=== PATIENT | female | born 1975 | race Caucasian/White ===

== ENCOUNTER 2020-02-28 16:02 | Emergency (ER) | payer OTHER, SELFPAY ==
[2020-02-28 16:23] VITALS: BP 129/79; PULSE 92; RESP 12; TEMP 36.8; O2SAT 98; BMI 16.2
--- NOTE | 2020-02-28 16:28 | PC.NURSE ---
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 She has cancer in her bladder and a stent that has been placed for ureteral obstruction. Her abdominal pain is coming from her bladder, not from her abdominal abscess.
[2020-02-28 16:54] LABS: Add Manual Diff / Slide Review NO; Basophils Absolute Auto 100 /uL (0-100); Basophils Percent Auto 0.8 % (0-2); Eosinophils Absolute Auto 200 /uL (0-450); Eosinophils Percent Auto 1.8 % (2-4); Hematocrit 26.8 % (36-46); Hemoglobin 8.6 g/dL (12.0-16.0); Lymphocytes Absolute Auto 1500 /uL (1100-4500); Lymphocytes Percent Auto 13.9 % (25-40); Mean Corpuscular HGB Conc 32.1 % (30-36); Mean Corpuscular Hemoglobin 26.7 PG (26-34); Mean Corpuscular Volume 83.3 fL (80-100); Monocytes Absolute Auto 800 /uL (0-900); Monocytes Percent Auto 7.4 % (3-14); Neutrophils Absolute Auto 8500 /uL (1500-7000); Neutrophils Percent Auto 76.1 % (50-75); Platelet Count 749 X10^3/uL (150-400); Red Blood Cell Count 3.22 X10^6/uL (4.0-5.2); Red Cell Distribution Width 17.2 % (11.6-14.8); White Blood Cell Count 11.1 X10^3/uL (4.5-11.0)
--- NOTE | 2020-02-28 16:55 | PC.NURSE ---
NON- power port
[2020-02-28] MEDS: HYDROMORPHONE 0.5 MG INJ IV (16:57)
[2020-02-28] MEDS: SODIUM CHLORIDE 0.9% 500 ML 21 ML IV (16:59)
[2020-02-28 17:08] LABS: Alanine Aminotransferase 7 IU/L (<35); Albumin 3.3 g/dL (3.5-5.0); Albumin Globulin Ratio 0.9 (1.0-2.8); Alkaline Phosphatase 112 U/L (38-126); Aspartate Aminotransferase 15 IU/L (14-36); BUN Creatinine Ratio 12.2 (6-22); Bilirubin Total 0.3 mg/dL (0.2-1.3); Blood Urea Nitrogen 11 mg/dL (7-17); Calcium 8.7 mg/dL (8.4-10.2); Carbon Dioxide 27 mmol/L (22-32); Chloride 95 mmol/L (98-107); Estimated Glomerular Filt Rate > 60.0 mL/min (>60); Globulin 3.6 g/dL (1.7-4.1); Glucose 123 mg/dL (70-100); HEMOLYSIS < 15 (0-50); Lactate (Lactic Acid) 1.1 mmol/L (0.7-2.1); Potassium 3.7 mmol/L (3.4-5.1); Sodium 130 mmol/L (137-145); Total Protein 6.9 g/dL (6.3-8.2)
--- NOTE | 2020-02-28 17:19 | DI.CT.S_ITS ---
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 5 mm coronal and sagittal reformats were acquired. For radiation dose reduction, the following was used: automated exposure control, adjustment of mA and/or kV according to patient size. COMPARISON: [facility], CT, ABDOMEN/PELVIS WITH CONTRAST, 07/26/2017, 15:50. FINDINGS: Image quality: Excellent. ABDOMEN: Lung bases: Lung bases are clear. Heart size is normal but there is a large low-density pericardial effusion. Solid organs: The liver appears mildly enlarged and the borders scalloped by innumerable, partially peripherally calcified low-density soft tissue lesions filling the peritoneal space. Similar findings are present adjacent to the spleen. Pancreas, gallbladder and adrenal glands appear normal. The left kidney is normal. There is moderate to significant right hydronephrosis. A nephroureteral stent is present, although the proximal pigtail is in the lowest aspect of the dilated extrarenal pelvis. Peritoneum and bowel: In the absence of oral contrast, the difference between fluid-filled bowel loops and low-density intraperitoneal metastases is unable to be discerned. There is solid stool in the distal colon and rectum. There is a large pelvic mass in the right adnexa and numerous peripherally enhancing masses in the presacral region all of which appear to have low-density. An extraluminal fluid collection cannot be discerned. Nodes and vessels: No retroperitoneal or mesenteric adenopathy by size criteria. Aorta and inferior vena cava are normal in size. Miscellaneous: There is a low-density anterior abdominal wall mass in the midline measuring roughly 5.9 x 3.4 cm, larger than seen previously. PELVIS: Genitourinary: Urinary bladder morphology is difficult to discern. Nephroureteral stent appears to terminate in the right posterior bladder and there is a moderate to large amount of anti dependent gas within the urinary bladder. The wall is thickened. The source of gas is not evident. Miscellaneous: No inguinal hernias or adenopathy. Bones: No suspicious bony lesions. Mild superior endplate compression centrally of T11, and inferior endplate scalloping of L5. No vertebral body compression fractures. IMPRESSION: 1. There is been interval placement of a right nephroureteral stent which appears positioned low within the right renal pelvis and there is moderate to marked right hydronephrosis. Correlate with stent function. 2. New large low-density pericardial effusion. 3. Interval increase in size of midline low-density soft tissue mass. 4. Redemonstrated numerous intraperitoneal and presacral soft tissue masses, many of which now demonstrate peripheral calcification. The larger bilateral flank masses have decreased in size. 5. Air within the urinary bladder of uncertain etiology. This could be due to recent instrumentation, infection with gas-forming organism, or fistula. Dictated by: Blaire Parra M.D. on 02/28/2020 at 18:34 Approved by: Blaire Parra M.D. on 02/28/2020 at 18:47
[2020-02-28 17:34] LABS: Pregnancy Test Serum,Qual Negative (Negative)
--- NOTE | 2020-02-28 17:39 | ED.SKABFB ---
HPI - Skin/Abscess/Foreign Bdy <LEXIE Santos - Last Filed: 02/28/20 20:49> General Chief complaint: Skin/Abscess/Foreign Body Stated complaint: States Abcess on Belly Time Seen by Provider: 02/28/20 16:12 Source: patient and family Mode of arrival: Ambulatory Limitations: no limitations History of Present Illness HPI narrative: The patient is a 44-year-old female former smoker with history of bowel obstructions, currently being treated for urinary tract infection with Bactrim, peritoneal cancer with tumors in her abdomen as well as her bladder. She presents today with of possible abscess on her abdomen over one of her tumors. She that is the beginning of an abscess on her lower abdomen just below her umbilicus a few days ago. She denies any fevers nausea vomiting or diarrhea. She states that she is in pain from her tumors in cancer, but not from her abscess. Related Data Previous Rx's Medication Instructions Recorded hydromorphone [Dilaudid] 2 mg PO Q6HP PRN #30 tab 07/26/17 cephalexin 500 mg PO TID 7 Days #21 cap 02/28/20 Allergies Allergy/AdvReac Type Severity Reaction Status Date / Time oxycodone [OXYCODONE] Allergy Unknown Hives Verified 02/28/20 16:56 Review of Systems <[facility] - Last Filed: 02/28/20 20:49> Review of Systems Narrative: GENERAL: Denies chills, fatigue, malaise, fever, sweats. HEENT: Denies sinus pain, ear pain, sore throat, difficulty swallowing, dizziness. RESPIRATORY: Denies dyspnea, cough, wheezing, hemoptysis, sputum. CARDIOVASCULAR: Denies chest pain, palpitations, orthopnea, edema, GASTROINTESTINAL: See HPI : Denies dysuria, frequency, incontinence, hematuria, urinary retention. MUSCULOSKELETAL: denies weakness, joint pain, or bony pain SKIN: See HPI NEUROLOGIC: Denies weakness, headache, numbness, change in speech, confusion, seizures, incoordination. PSYCHIATRIC: No concerning psychosocial issues. 12 point review of systems is negative except for those stated above Patient History <LEXIE Santos - Last Filed: 02/28/20 20:49> Social History Smoking Status: Former smoker Smoking Status: Former smoker tobacco type: cigarettes Substance Use Type: does not use Exam <ANASTASIA Santos - Last Filed: 02/28/20 20:49> Narrative Exam Narrative: GENERAL: Thin female, chronically ill-appearing HEAD: Atraumatic. Normocephalic. No temporal or scalp tenderness. EYES: Pupils equal round and reactive. Extraocular motions intact. No scleral icterus. No injection or drainage. ENT: Nose without bleeding, purulent drainage or septal hematoma. Throat without erythema, tonsillar hypertrophy or exudate. Uvula midline. Airway patent. NECK: Trachea midline. No JVD or lymphadenopathy. Supple, nontender, no meningeal signs. CARDIOVASCULAR: Regular rate and rhythm RESPIRATORY: Clear to auscultation. Breath sounds equal bilaterally. No wheezes, rales, or rhonchi. No cough. No increased respiratory effort. No accessory muscle use. GASTROINTESTINAL: Abdomen firm, active bowel sounds all 4 quadrants, generally painful to palpation, multiple masses palpated. 0.5 cm blister appearing just distal to umbilicus with 2 mm slight surrounding erythema. EXTREMITIES: No clubbing, cyanosis, or edema. No joint tenderness, effusion, or edema noted. BACK: Nontender without deformity or crepitance. No flank tenderness. NEURO: AOx3. SKIN: See GI Initial Vital Signs Initial Vital Signs: Vital Signs Temperature 98.3 F 02/28/20 16:23 Pulse Rate 92 H 02/28/20 16:23 Respiratory Rate 12 02/28/20 16:23 Blood Pressure 129/79 02/28/20 16:23 Pulse Oximetry 98 02/28/20 16:23 <Chandrakant Graham DO - Last Filed: 02/28/20 20:50> Initial Vital Signs Initial Vital Signs: Vital Signs Temperature 98.3 F 02/28/20 16:23 Pulse Rate 92 H 02/28/20 16:23 Respiratory Rate 12 02/28/20 16:23 Blood Pressure 129/79 02/28/20 16:23 Pulse Oximetry 98 02/28/20 16:23 Procedures <ANASTASIA Santos - Last Filed: 02/28/20 20:49> Abscess I/D I&D #1: Site: abdomen (Umbilicus) Technique: needle aspiration (cleaned with chloa prep ) Irrigation: No Packing used?: none Course <AMANDA SantosP-BC - Last Filed: 02/28/20 20:49> Orders Ordered: ED Orders 02/28/20 16:40 Test Serum,Qual Stat 02/28/20 16:47 Complete Blood Count AUTO DIFF Stat Comprehensive Metabolic Panel Stat Lactate (Lactic Acid) Stat 02/28/20 17:19 CT abdomen pelvis w con Stat 02/28/20 17:28 Urine Culture Stat Urine Microscopic Stat Discontinued Medications Cephalexin HCl (Keflex) 500 mg PO NOW ONE Stop: 02/28/20 19:12 Last Admin: 02/28/20 19:35 Dose: 500 mg Documented by: GAL Heparin Sodium (Porcine) (Heparin Flush (Port)) 500 unit IV PRN PRN PRN Reason: Flush Last Admin: 02/28/20 19:53 Dose: 500 unit Documented by: GAL Hydromorphone HCl (Dilaudid) 0.5 mg IV NOW ONE Stop: 02/28/20 16:50 Last Admin: 02/28/20 16:57 Dose: 0.5 mg Documented by: GAL Hydromorphone HCl (Dilaudid) 1 mg IV NOW ONE Stop: 02/28/20 18:34 Last Admin: 02/28/20 18:43 Dose: 1 mg Documented by: GAL Sodium Chloride (Normal Saline 0.9%) 500 mls @ 21 mls/hr IV CONT ELGIN Last Infusion: 02/28/20 19:55 Dose: 0 mls/hr Documented by: Infusion: 02/28/20 19:42 Dose: 0 mls/hr Documented by: Admin: 02/28/20 16:59 Dose: 50 mls/hr Documented by: GAL Vital Signs Vital signs: Vital Signs - 8 hr 02/28/20 16:23 02/28/20 19:56 Temperature 98.3 F Pulse Rate 92 H 95 H Respiratory Rate 12 12 Blood Pressure 129/79 123/80 Pulse Oximetry 98 99 <Chandrakant Graham DO - Last Filed: 02/28/20 20:50> Orders Ordered: ED Orders 02/28/20 16:40 Test Serum,Qual Stat 02/28/20 16:47 Complete Blood Count AUTO DIFF Stat Comprehensive Metabolic Panel Stat Lactate (Lactic Acid) Stat 02/28/20 17:19 CT abdomen pelvis w con Stat 02/28/20 17:28 Urine Culture Stat Urine Microscopic Stat Discontinued Medications Cephalexin HCl (Keflex) 500 mg PO NOW ONE Stop: 02/28/20 19:12 Last Admin: 02/28/20 19:35 Dose: 500 mg Documented by: GAL Heparin Sodium (Porcine) (Heparin Flush (Port)) 500 unit IV PRN PRN PRN Reason: Flush Last Admin: 02/28/20 19:53 Dose: 500 unit Documented by: GAL Hydromorphone HCl (Dilaudid) 0.5 mg IV NOW ONE Stop: 02/28/20 16:50 Last Admin: 02/28/20 16:57 Dose: 0.5 mg Documented by: GAL Hydromorphone HCl (Dilaudid) 1 mg IV NOW ONE Stop: 02/28/20 18:34 Last Admin: 02/28/20 18:43 Dose: 1 mg Documented by: GAL Sodium Chloride (Normal Saline 0.9%) 500 mls @ 21 mls/hr IV CONT ELGIN Last Infusion: 02/28/20 19:55 Dose: 0 mls/hr Documented by: Infusion: 02/28/20 19:42 Dose: 0 mls/hr Documented by: Admin: 02/28/20 16:59 Dose: 50 mls/hr Documented by: GAL Vital Signs Vital signs: Vital Signs - 8 hr 02/28/20 16:23 02/28/20 19:56 Temperature 98.3 F Pulse Rate 92 H 95 H Respiratory Rate 12 12 Blood Pressure 129/79 123/80 Pulse Oximetry 98 99 MDM - Skin/Abscess/Foreign Bdy <ANASTASIA Santos - Last Filed: 02/28/20 20:49> Lab Data Result diagrams: 02/28/20 16:47 02/28/20 16:47 Labs: Lab Results 02/28/20 02/28/20 02/28/20 Range/Units 16:40 16:47 16:47 WBC 11.1 H (4.5-11.0) X10^3/uL RBC 3.22 L (4.0-5.2) X10^6/uL Hgb 8.6 L (12.0-16.0) g/dL Hct 26.8 L (36-46) % MCV 83.3 (80-100) fL MCH 26.7 (26-34) PG MCHC 32.1 (30-36) % RDW 17.2 H (11.6-14.8) % Plt Count 749 H (150-400) X10^3/uL Neut % (Auto) 76.1 H (50-75) % Lymph % (Auto) 13.9 L (25-40) % Foard % (Auto) 7.4 (3-14) % Eos % (Auto) 1.8 L (2-4) % Baso % (Auto) 0.8 (0-2) % Neut # (Auto) 8500 H (7481-6393) /uL Lymph # (Auto) 1500 (1123-0015) /uL Foard # (Auto) 800 (0-900) /uL Eos # (Auto) 200 (0-450) /uL Baso # (Auto) 100 (0-100) /uL Sodium 130 L (137-145) mmol/L Potassium 3.7 (3.4-5.1) mmol/L Chloride 95 L (98-107) mmol/L Carbon Dioxide 27 (22-32) mmol/L BUN 11 (7-17) mg/dL Creatinine 0.90 (0.52-1.04) mg/dL Estimated GFR > 60.0 (>60) mL/min BUN/Creatinine Ratio 12.2 (6-22) Glucose 123 H (70-100) mg/dL Lactate (0.7-2.1) mmol/L Calcium 8.7 (8.4-10.2) mg/dL Total Bilirubin 0.3 (0.2-1.3) mg/dL AST 15 (14-36) IU/L ALT 7 (<35) IU/L Alkaline Phosphatase 112 (38-126) U/L Total Protein 6.9 (6.3-8.2) g/dL Albumin 3.3 L (3.5-5.0) g/dL Globulin 3.6 (1.7-4.1) g/dL Albumin/Globulin Ratio 0.9 L (1.0-2.8) Serum , Qual Negative (Negative) Urine RBC (0-5/HPF) Urine WBC (0-5/HPF) Ur Squamous Epith Cells (0-5/HPF) Amorphous Sediment Urine Bacteria (None) Urine Mucus (Negative) Ur Culture Indicated? 02/28/20 02/28/20 Range/Units 16:47 17:28 WBC (4.5-11.0) X10^3/uL RBC (4.0-5.2) X10^6/uL Hgb (12.0-16.0) g/dL Hct (36-46) % MCV (80-100) fL MCH (26-34) PG MCHC (30-36) % RDW (11.6-14.8) % Plt Count (150-400) X10^3/uL Neut % (Auto) (50-75) % Lymph % (Auto) (25-40) % Foard % (Auto) (3-14) % Eos % (Auto) (2-4) % Baso % (Auto) (0-2) % Neut # (Auto) (6846-4483) /uL Lymph # (Auto) (5060-8641) /uL Foard # (Auto) (0-900) /uL Eos # (Auto) (0-450) /uL Baso # (Auto) (0-100) /uL Sodium (137-145) mmol/L Potassium (3.4-5.1) mmol/L Chloride (98-107) mmol/L Carbon Dioxide (22-32) mmol/L BUN (7-17) mg/dL Creatinine (0.52-1.04) mg/dL Estimated GFR (>60) mL/min BUN/Creatinine Ratio (6-22) Glucose (70-100) mg/dL Lactate 1.1 (0.7-2.1) mmol/L Calcium (8.4-10.2) mg/dL Total Bilirubin (0.2-1.3) mg/dL AST (14-36) IU/L ALT (<35) IU/L Alkaline Phosphatase (38-126) U/L Total Protein (6.3-8.2) g/dL Albumin (3.5-5.0) g/dL Globulin (1.7-4.1) g/dL Albumin/Globulin Ratio (1.0-2.8) Serum , Qual (Negative) Urine RBC 5-10/hpf H (0-5/HPF) Urine WBC >100/hpf H (0-5/HPF) Ur Squamous Epith Cells 0-1 /hpf (0-5/HPF) Amorphous Sediment 1+ Urine Bacteria Many (>30) H (None) Urine Mucus 2+ H (Negative) Ur Culture Indicated? Specimen cultured Point of Care Testing Test Results Negative Urine Dip Bedside Urine Glucose Negative Bedside Urine Bilirubin - Negative Bedside Urine Ketone - Negative Urine Specific [place] 1.015 Bedside Urine Occult Blood +++ Bedside Urine pH 7.5 Bedside Urine Protein + 30 Bedside Urine Urobilinogen - Negative Bedside Urine Nitrite - Negative Bedside Urine Leukocytes +++ [address] scan - abdomen/pelvis: Radiologist's Impression: [address] [place] [id number] Scan Report Signed Patient: Darby Carver#: [id number] : 1975Acct:[id number] Age/Sex: 44 / FDate of Service: 02/28/20 Loc: ED Accession Number: [id number] Procedure: CT abdomen pelvis w con 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 5 mm coronal and sagittal reformats were acquired. For radiation dose reduction, the following was used: automated exposure control, adjustment of mA and/or kV according to patient size. COMPARISON: [facility], CT, ABDOMEN/PELVIS WITH CONTRAST, 07/26/2017, 15:50. FINDINGS: Image quality: Excellent. ABDOMEN: Lung bases: Lung bases are clear. Heart size is normal but there is a large low-density pericardial effusion. Solid organs: The liver appears mildly enlarged and the borders scalloped by innumerable, partially peripherally calcified low-density soft tissue lesions filling the peritoneal space. Similar findings are present adjacent to the spleen. Pancreas, gallbladder and adrenal glands appear normal. The left kidney is normal. There is moderate to significant right hydronephrosis. A nephroureteral stent is present, although the proximal pigtail is in the lowest aspect of the dilated extrarenal pelvis. Peritoneum and bowel: In the absence of oral contrast, the difference between fluid-filled bowel loops and low-density intraperitoneal metastases is unable to be discerned. There is solid stool in the distal colon and rectum. There is a large pelvic mass in the right adnexa and numerous peripherally enhancing masses in the presacral region all of which appear to have low-density. An extraluminal fluid collection cannot be discerned. Nodes and vessels: No retroperitoneal or mesenteric adenopathy by size criteria. Aorta and inferior vena cava are normal in size. Miscellaneous: There is a low-density anterior abdominal wall mass in the midline measuring roughly 5.9 x 3.4 cm, larger than seen previously. PELVIS: Genitourinary: Urinary bladder morphology is difficult to discern. Nephroureteral stent appears to terminate in the right posterior bladder and there is a moderate to large amount of anti dependent gas within the urinary bladder. The wall is thickened. The source of gas is not evident. Miscellaneous: No inguinal hernias or adenopathy. Bones: No suspicious bony lesions. Mild superior endplate compression centrally of T11, and inferior endplate scalloping of L5. No vertebral body compression fractures. IMPRESSION: 1. There is been interval placement of a right nephroureteral stent which appears positioned low within the right renal pelvis and there is moderate to marked right hydronephrosis. Correlate with stent function. 2. New large low-density pericardial effusion. 3. Interval increase in size of midline low-density soft tissue mass. 4. Redemonstrated numerous intraperitoneal and presacral soft tissue masses, many of which now demonstrate peripheral calcification. The larger bilateral flank masses have decreased in size. 5. Air within the urinary bladder of uncertain etiology. This could be due to recent instrumentation, infection with gas-forming organism, or fistula. Dictated by: Blaire Parra M.D. on 02/28/2020 at 18:34 Approved by: Blaire Parra M.D. on 02/28/2020 at 18:47 [facility] Narrative Medical decision making narrative: The patient is a 44-year-old female with a complicated medical history including peritoneal cancer, known multiple masses who presents with a chief complaint of an abscess over one of her abdominal masses that can be seen protruding from the skin. Given her complicated history, as CT scan was obtained to ensure that there is no fistula or tumor protrusion. Her CT scan came back negative for any acute findings. Her CT scan does have multiple masses in her flanks, abdomen, which the patient states are known. It shows a pericardial effusion which the patient states is known. She also has evidence of a ureteral stent, which was recently placed correlated with hydronephrosis, which the patient states is known. Additionally her creatinine is 0.9. We also discussed evidence of air in the urinary bladder. The patient was given a copy of her CT scan and states that there are no acute findings and that she knows about everything. The patient is currently taking Bactrim for urinary tract infection, I did obtain a culture of her abscess that will result shortly. She has no signs of hemodynamically instability and appears nontoxic. I did place her on cephalexin to broaden her coverage and encouraged a probiotic or yogurt. The patient was given Dilaudid throughout her stay in the ER for pain control as she takes this as an outpatient. Wound cultures pending. Patient states that she will follow up with primary care provider in the next few days. I discussed at length the importance of follow-up with primary care as well as her Hematology-Oncology. Discussed coming back to ER for acute concerns, abdominal pain with fever inability keep down fluids etcetera. Patient has been of no questions or concerns upon discharge and states understanding return precautions as well as follow-up care. <Chandrakant Graham, DO - Last Filed: 02/28/20 20:50> Lab Data Labs: Lab Results 02/28/20 02/28/20 02/28/20 Range/Units 16:40 16:47 16:47 WBC 11.1 H (4.5-11.0) X10^3/uL RBC 3.22 L (4.0-5.2) X10^6/uL Hgb 8.6 L (12.0-16.0) g/dL Hct 26.8 L (36-46) % MCV 83.3 (80-100) fL MCH 26.7 (26-34) PG MCHC 32.1 (30-36) % RDW 17.2 H (11.6-14.8) % Plt Count 749 H (150-400) X10^3/uL Neut % (Auto) 76.1 H (50-75) % Lymph % (Auto) 13.9 L (25-40) % Foard % (Auto) 7.4 (3-14) % Eos % (Auto) 1.8 L (2-4) % Baso % (Auto) 0.8 (0-2) % Neut # (Auto) 8500 H (7590-0434) /uL Lymph # (Auto) 1500 (9068-2079) /uL Foard # (Auto) 800 (0-900) /uL Eos # (Auto) 200 (0-450) /uL Baso # (Auto) 100 (0-100) /uL Sodium 130 L (137-145) mmol/L Potassium 3.7 (3.4-5.1) mmol/L Chloride 95 L (98-107) mmol/L Carbon Dioxide 27 (22-32) mmol/L BUN 11 (7-17) mg/dL Creatinine 0.90 (0.52-1.04) mg/dL Estimated GFR > 60.0 (>60) mL/min BUN/Creatinine Ratio 12.2 (6-22) Glucose 123 H (70-100) mg/dL Lactate (0.7-2.1) mmol/L Calcium 8.7 (8.4-10.2) mg/dL Total Bilirubin 0.3 (0.2-1.3) mg/dL AST 15 (14-36) IU/L ALT 7 (<35) IU/L Alkaline Phosphatase 112 (38-126) U/L Total Protein 6.9 (6.3-8.2) g/dL Albumin 3.3 L (3.5-5.0) g/dL Globulin 3.6 (1.7-4.1) g/dL Albumin/Globulin Ratio 0.9 L (1.0-2.8) Serum , Qual Negative (Negative) Urine RBC (0-5/HPF) Urine WBC (0-5/HPF) Ur Squamous Epith Cells (0-5/HPF) Amorphous Sediment Urine Bacteria (None) Urine Mucus (Negative) Ur Culture Indicated? 02/28/20 02/28/20 Range/Units 16:47 17:28 WBC (4.5-11.0) X10^3/uL RBC (4.0-5.2) X10^6/uL Hgb (12.0-16.0) g/dL Hct (36-46) % MCV (80-100) fL MCH (26-34) PG MCHC (30-36) % RDW (11.6-14.8) % Plt Count (150-400) X10^3/uL Neut % (Auto) (50-75) % Lymph % (Auto) (25-40) % Foard % (Auto) (3-14) % Eos % (Auto) (2-4) % Baso % (Auto) (0-2) % Neut # (Auto) (7674-0671) /uL Lymph # (Auto) (2705-9148) /uL Foard # (Auto) (0-900) /uL Eos # (Auto) (0-450) /uL Baso # (Auto) (0-100) /uL Sodium (137-145) mmol/L Potassium (3.4-5.1) mmol/L Chloride (98-107) mmol/L Carbon Dioxide (22-32) mmol/L BUN (7-17) mg/dL Creatinine (0.52-1.04) mg/dL Estimated GFR (>60) mL/min BUN/Creatinine Ratio (6-22) Glucose (70-100) mg/dL Lactate 1.1 (0.7-2.1) mmol/L Calcium (8.4-10.2) mg/dL Total Bilirubin (0.2-1.3) mg/dL AST (14-36) IU/L ALT (<35) IU/L Alkaline Phosphatase (38-126) U/L Total Protein (6.3-8.2) g/dL Albumin (3.5-5.0) g/dL Globulin (1.7-4.1) g/dL Albumin/Globulin Ratio (1.0-2.8) Serum , Qual (Negative) Urine RBC 5-10/hpf H (0-5/HPF) Urine WBC >100/hpf H (0-5/HPF) Ur Squamous Epith Cells 0-1 /hpf (0-5/HPF) Amorphous Sediment 1+ Urine Bacteria Many (>30) H (None) Urine Mucus 2+ H (Negative) Ur Culture Indicated? Specimen cultured Point of Care Testing Test Results Negative Urine Dip Bedside Urine Glucose Negative Bedside Urine Bilirubin - Negative Bedside Urine Ketone - Negative Urine Specific [place] 1.015 Bedside Urine Occult Blood +++ Bedside Urine pH 7.5 Bedside Urine Protein + 30 Bedside Urine Urobilinogen - Negative Bedside Urine Nitrite - Negative Bedside Urine Leukocytes +++ 500 Esterase Discharge Plan Departure Patient Disposition: Home Clinical Impression: Abscess of skin or subcutaneous tissue Qualifiers: Site of cutaneous abscess: trunk Site of cutaneous abscess of trunk: umbilicus Qualified Code(s): L02.216 - Cutaneous abscess of umbilicus Discharge Date/Time: 02/28/20 19:58 Instructions: DI for Skin Abscess Activity Restrictions/Additional Instructions: Thank you for trusting us with your care today. I sent a prescription of an additional antibiotic to [facility]. Please continue your Bactrim. As discussed, please follow-up with primary care provider in the next few days. I encouraged a probiotic or yogurt with your antibiotics. We are doing a wound culture, results should come up in 2-3 days. We will call you if we need to change her antibiotic therapy. Please come back to the emergency department for any acute concerns. Prescriptions: New cephalexin 500 mg capsule 500 mg PO TID 7 Days Qty: 21 RF: 0 No Action hydromorphone [Dilaudid] 2 MG tablet 2 mg PO Q6HP PRNQty: 30 RF: 0 Referrals: Marta Grant MD [Primary Care Provider] - <Chandrakant Graham, - Last Filed: 02/28/20 20:50> Cosign ED Attending Cosignature Attestation: Dr Graham Co-Sign Statement: I was available for consultation during this patient's emergency department visit. This chart is signed by myself for administrative purposes only. I did not have direct contact with this patient during this visit. They were seen independently by the APC.
[2020-02-28 18:30] LABS: Amorphous Sediment Urine 1+; Bacteria Urine Many (>30); Culture Indicated Urine Specimen Cultured; Mucus Urine 2+ (Negative); RBC Urine 5-10/HPF (0-5/HPF); Squamous Epithelial Cell Urine 0-1 /HPF (0-5/HPF); WBC Urine >100/HPF (0-5/HPF)
[2020-02-28] MEDS: HYDROMORPHONE 1 MG INJ IV (18:43)
[2020-02-28] MEDS: cephALEXin 250 MG CAPSULE 500 MG PO (19:35)
[2020-02-28 19:56] VITALS: BP 123/80; PULSE 95; RESP 12; O2SAT 99
== END 2020-02-28 19:58 | disposition home or self-care (01) ==
PROVIDERS: Emergency Provider Nurse Practitioner Family; PCP Family Medicine
DX: L02.216 Cutaneous abscess of umbilicus (principal)
CPT/HCPCS: 36415; 74177; 80053; 81003; 81015; 81025; 83605; 84703; 85025; 87086; 96361; 96374; 96375; 99284; J1170; J1642; Q9967

== ENCOUNTER 2020-05-04 10:57 | Emergency (ER) | payer OTHER, SELFPAY ==
[2020-05-04] VITALS (21 sets, daily range): BP systolic 81–105; BP diastolic 54–70; PULSE 62–81; RESP 12–22; TEMP 36.3–36.7; O2SAT 92–100; BMI 16.9
[2020-05-04 11:39] LABS: Amorphous Sediment Urine 2+; Bacteria Urine Many (>30); Culture Indicated Urine Specimen Cultured; RBC Urine 5-10/HPF (0-5/HPF); Squamous Epithelial Cell Urine 1-5 /HPF (0-5/HPF); WBC Urine >100/HPF (0-5/HPF)
--- NOTE | 2020-05-04 11:52 | ED.WEAKNESS ---
HPI - Weakness General Chief complaint: Weakness Stated complaint: need dehydration fluids/weakness x7 days Time Seen by Provider: 05/04/20 11:06 Source: patient Mode of arrival: Wheelchair Limitations: no limitations History of Present Illness HPI Narrative: Patient is a 44-year-old female with complicated history peritoneal cancer, small-bowel obstructions, UTIs, fistula, currently hers cancer is being treated and monitored by specialist in [facility] not currently on chemo or radiation presenting today with increased weakness dizziness lightheadedness. She says every time she stands up she gets extremely fatigued tired and dizzy. She has previously needed blood transfusions or IV hydration. She denies any fever or chills. MD Complaint: generalized weakness Related Data Previous Rx's Medication Instructions Recorded hydromorphone [Dilaudid] 2 mg PO Q6HP PRN #30 tab 07/26/17 Allergies Allergy/AdvReac Type Severity Reaction Status Date / Time oxycodone [OXYCODONE] Allergy Unknown Hives Verified 05/04/20 11:16 Review of Systems Review of Systems ROS Unobtainable: All systems reviewed & are unremarkable except as noted in HPI and below Constitutional Constitutional: Denies chills, Denies fever(s), Reports lethargy and Reports weakness Eyes Eyes: Denies change in vision, Denies eye discharge, Denies irritation and Denies loss of vision Cardiovascular Cardiovascular: Denies chest pain, Denies irregular heart rhythm, Denies lightheadedness, Denies palpitations, Denies dyspnea, Denies dyspnea on exertion and Denies orthopnea Respiratory Respiratory: Denies cough, Denies dyspnea, Denies dyspnea on exertion and Denies wheezing Gastrointestinal Gastrointestinal: Reports as per HPI, Denies diarrhea, Denies nausea and Denies vomiting Musculoskeletal Musculoskeletal: Denies muscle cramps Integumentary/Breasts Skin/Breast: Denies pruritus, Denies erythema, Denies rash and Denies wounds Neurologic Neurologic: Denies loss of vision and Reports weakness Endocrine Endocrine: Denies palpitations Allergic/Immunologic Allergic/Immunologic: Denies wheezing Patient History Medical History Anemia Cancer of peritoneum Social History Smoking Status: Former smoker Smoking Status: Former smoker tobacco type: cigarettes Substance Use Type: does not use Exam Initial Vital Signs Initial Vital Signs: Vital Signs Temperature 98.1 F 05/04/20 11:00 Pulse Rate 81 05/04/20 11:00 Respiratory Rate 14 05/04/20 11:00 Blood Pressure 101/62 05/04/20 11:00 Pulse Oximetry 100 05/04/20 11:00 GENERAL: Chronically ill cachectic female and in no acute distress. HEENT: Head atraumatic,EOMI, pupils reactive, face symmetric, moist mucous membranes CARDIOVASCULAR: Regular rate and rhythm without murmurs, rubs or gallops. RESPIRATORY: Breath sounds equal bilaterally, no wheezes rales or rhonchi. ABDOMEN: Soft, distended nontender no guarding or rebound EXTREMITIES: Normal range of motion, no clubbing or edema. Neurovascularly intact NEUROLOGICAL: Alert and oriented x4.Normal gait and speech. SKIN: Warm, dry, no laceration, no petechiae, no rashes or lesions. Course Orders Ordered: ED Orders 05/04/20 11:18 Urine Culture Stat Urine Microscopic Stat 05/04/20 11:40 Complete Blood Count AUTO DIFF Stat Comprehensive Metabolic Panel Stat Packed Cells Stat Type and Screen Stat Discontinued Medications Hydromorphone HCl (Hydromorphone 1 Mg Inj) 1 mg IV NOW ONE Stop: 05/04/20 12:51 Last Admin: 05/04/20 13:32 Dose: 1 mg Documented by: BRITTANY Hydromorphone HCl (Hydromorphone 1 Mg Inj) 1 mg IV NOW ONE Stop: 05/04/20 16:18 Last Admin: 05/04/20 16:23 Dose: 1 mg Documented by: BRITTANY Sodium Chloride (Normal Saline 0.9%) 1,000 mls @ 1,000 mls/hr IV BOLUS ONE Stop: 05/04/20 12:59 Last Infusion: 05/04/20 14:15 Dose: 0 mls/hr Documented by: Admin: 05/04/20 12:25 Dose: 1,000 mls/hr Documented by: JESSICA Vital Signs Vital signs: Vital Signs - 8 hr 05/04/20 11:00 05/04/20 12:22 05/04/20 12:30 Temperature 98.1 F Pulse Rate 81 63 70 Respiratory Rate 14 Blood Pressure 101/62 90/54 L 90/56 L Pulse Oximetry 100 98 93 05/04/20 13:00 05/04/20 13:25 05/04/20 13:30 Temperature Pulse Rate 67 71 Respiratory Rate Blood Pressure 86/64 L 91/57 L 96/63 Pulse Oximetry 100 96 05/04/20 13:39 05/04/20 13:58 05/04/20 13:59 Temperature 97.4 F L Pulse Rate 65 71 71 Respiratory Rate 12 Blood Pressure 87/65 L 85/61 L 85/61 L Pulse Oximetry 93 98 05/04/20 14:00 05/04/20 14:18 05/04/20 14:22 Temperature 97.6 F Pulse Rate 71 64 Respiratory Rate 18 Blood Pressure 89/56 L 81/58 L 81/58 L Pulse Oximetry 92 05/04/20 15:47 05/04/20 15:56 05/04/20 15:57 Temperature 97.5 F L Pulse Rate 64 71 Respiratory Rate 22 Blood Pressure 85/57 L 85/57 L Pulse Oximetry 100 100 05/04/20 16:00 05/04/20 16:05 05/04/20 16:19 Temperature 97.5 F L Pulse Rate 73 62 63 Respiratory Rate 18 Blood Pressure 86/62 L 86/62 L 87/60 L Pulse Oximetry 100 94 05/04/20 16:21 Temperature 97.5 F L Pulse Rate 71 Respiratory Rate 16 Blood Pressure 87/60 L Pulse Oximetry MDM - Weakness Lab Data Attestation: I reviewed the patient's lab results. Result diagrams: 05/04/20 11:40 05/04/20 11:40 Labs: Lab Results 05/04/20 05/04/20 05/04/20 Range/Units 11:18 11:40 11:40 WBC 10.4 (4.5-11.0) X10^3/uL RBC 2.30 L (4.0-5.2) X10^6/uL Hgb 5.7 L* (12.0-16.0) g/dL Hct 19.1 L* (36-46) % MCV 83.1 (80-100) fL MCH 24.6 L (26-34) PG MCHC 29.6 L (30-36) % RDW 17.6 H (11.6-14.8) % Plt Count 475 H (150-400) X10^3/uL Neut % (Auto) 81.7 H (50-75) % Lymph % (Auto) 11.4 L (25-40) % [place] % (Auto) 6.3 (3-14) % Eos % (Auto) 0.1 L (2-4) % Baso % (Auto) 0.5 (0-2) % Neut # (Auto) 8500 H (9655-6686) /uL Lymph # (Auto) 1200 (7623-1735) /uL [place] # (Auto) 700 (0-900) /uL Eos # (Auto) 0 (0-450) /uL Baso # (Auto) 100 (0-100) /uL Sodium 134 L (137-145) mmol/L Potassium 3.0 L (3.4-5.1) mmol/L Chloride 102 (98-107) mmol/L Carbon Dioxide 29 (22-32) mmol/L BUN 23 H (7-17) mg/dL Creatinine 0.53 (0.52-1.04) mg/dL Estimated GFR > 60.0 (>60) mL/min BUN/Creatinine Ratio 43.4 H (6-22) Glucose 103 H (70-100) mg/dL Calcium 7.6 L (8.4-10.2) mg/dL Total Bilirubin 0.3 (0.2-1.3) mg/dL AST 21 (14-36) IU/L ALT 9 (<35) IU/L Alkaline Phosphatase 100 (38-126) U/L Total Protein 5.5 L (6.3-8.2) g/dL Albumin 2.3 L (3.5-5.0) g/dL Globulin 3.2 (1.7-4.1) g/dL Albumin/Globulin Ratio 0.7 L (1.0-2.8) Urine RBC 5-10/hpf H (0-5/HPF) Urine WBC >100/hpf H (0-5/HPF) Ur Squamous Epith Cells 1-5 /hpf (0-5/HPF) Amorphous Sediment 2+ Urine Bacteria Many (>30) H (None) Ur Culture Indicated? Specimen cultured Blood Type Antibody Screen Crossmatch 05/04/20 Range/Units 11:40 WBC (4.5-11.0) X10^3/uL RBC (4.0-5.2) X10^6/uL Hgb (12.0-16.0) g/dL Hct (36-46) % MCV (80-100) fL MCH (26-34) PG MCHC (30-36) % RDW (11.6-14.8) % Plt Count (150-400) X10^3/uL Neut % (Auto) (50-75) % Lymph % (Auto) (25-40) % [place] % (Auto) (3-14) % Eos % (Auto) (2-4) % Baso % (Auto) (0-2) % Neut # (Auto) (5676-0274) /uL Lymph # (Auto) (1511-3825) /uL [place] # (Auto) (0-900) /uL Eos # (Auto) (0-450) /uL Baso # (Auto) (0-100) /uL Sodium (137-145) mmol/L Potassium (3.4-5.1) mmol/L Chloride (98-107) mmol/L Carbon Dioxide (22-32) mmol/L BUN (7-17) mg/dL Creatinine (0.52-1.04) mg/dL Estimated GFR (>60) mL/min BUN/Creatinine Ratio (6-22) Glucose (70-100) mg/dL Calcium (8.4-10.2) mg/dL Total Bilirubin (0.2-1.3) mg/dL AST (14-36) IU/L ALT (<35) IU/L Alkaline Phosphatase (38-126) U/L Total Protein (6.3-8.2) g/dL Albumin (3.5-5.0) g/dL Globulin (1.7-4.1) g/dL Albumin/Globulin Ratio (1.0-2.8) Urine RBC (0-5/HPF) Urine WBC (0-5/HPF) Ur Squamous Epith Cells (0-5/HPF) Amorphous Sediment Urine Bacteria (None) Ur Culture Indicated? Blood Type O Positive Antibody Screen Negative Crossmatch See Detail Urine Dip Bedside Urine Glucose Negative Bedside Urine Bilirubin ++ 2 Bedside Urine Ketone - Negative Urine Specific [place] 1.025 Bedside Urine Occult Blood +++ Bedside Urine pH 6.0 Bedside Urine Protein ++ 100 Bedside Urine Urobilinogen - Negative Bedside Urine Nitrite - Negative Bedside Urine Leukocytes ++ 125 Esterase MDM Narrative Medical decision making narrative: Patient is found to be quite anemic. She is given 2 units of blood in the ED she does not want to be admitted she overall appears well. She does have some electrolyte abnormalities such as calcium and potassium recommend outpatient follow-up. She is ambulatory in the ED after her infusion and overall is feeling much better. He does show signs of UTI however she has frequent bacteria in her urine. Discharge Plan Departure Patient Disposition: Home Clinical Impression: Anemia, Hypocalcemia Instructions: Anemia Activity Restrictions/Additional Instructions: *You have been diagnosed with anemia *What to do: You received 2 units of blood today. Your calcium was noted to be slightly low, however please follow-up with your primary doctor's or your oncologist. *Continue to take medications as directed *Follow up with your primary care provider in 2-3 days *Return to ER if you should have increasing shortness of breath, dizziness, lightheadedness worsening pain [or] any new, worsening or concerning symptoms Prescriptions: No Action hydromorphone [Dilaudid] 2 MG tablet 2 mg PO Q6HP PRNQty: 30 RF: 0 Referrals: Marta Grant MD [Primary Care Provider] -
[2020-05-04 12:04] LABS: Add Manual Diff / Slide Review NO; Basophils Absolute Auto 100 /uL (0-100); Basophils Percent Auto 0.5 % (0-2); Eosinophils Absolute Auto 0 /uL (0-450); Eosinophils Percent Auto 0.1 % (2-4); Lymphocytes Absolute Auto 1200 /uL (1100-4500); Lymphocytes Percent Auto 11.4 % (25-40); Mean Corpuscular HGB Conc 29.6 % (30-36); Mean Corpuscular Hemoglobin 24.6 PG (26-34); Mean Corpuscular Volume 83.1 fL (80-100); Monocytes Absolute Auto 700 /uL (0-900); Monocytes Percent Auto 6.3 % (3-14); Neutrophils Absolute Auto 8500 /uL (1500-7000); Neutrophils Percent Auto 81.7 % (50-75); Platelet Count 475 X10^3/uL (150-400); Red Cell Distribution Width 17.6 % (11.6-14.8); White Blood Cell Count 10.4 X10^3/uL (4.5-11.0)
[2020-05-04 12:09] LABS: Alanine Aminotransferase 9 IU/L (<35); Albumin 2.3 g/dL (3.5-5.0); Albumin Globulin Ratio 0.7 (1.0-2.8); Alkaline Phosphatase 100 U/L (38-126); Aspartate Aminotransferase 21 IU/L (14-36); BUN Creatinine Ratio 43.4 (6-22); Bilirubin Total 0.3 mg/dL (0.2-1.3); Blood Urea Nitrogen 23 mg/dL (7-17); Calcium 7.6 mg/dL (8.4-10.2); Carbon Dioxide 29 mmol/L (22-32); Chloride 102 mmol/L (98-107); Estimated Glomerular Filt Rate > 60.0 mL/min (>60); Globulin 3.2 g/dL (1.7-4.1); Glucose 103 mg/dL (70-100); HEMOLYSIS < 15 (0-50); Sodium 134 mmol/L (137-145); Total Protein 5.5 g/dL (6.3-8.2)
[2020-05-04 12:10] LABS: Hemoglobin 5.7 g/dL (12.0-16.0)
[2020-05-04 12:11] LABS: Hematocrit 19.1 % (36-46)
[2020-05-04] MEDS: SODIUM CHLORIDE 0.9% 1,000 ML 1000 ML IV (12:25)
--- NOTE | 2020-05-04 12:42 | PC.NURSE ---
notified Dr Ziegler of patient low calcium and potential replacement prior to transfusion, no new orders received.
[2020-05-04] MEDS: HYDROMORPHONE 1 MG INJ IV ×2 (13:32→16:23)
--- NOTE | 2020-05-04 16:09 | PC.NURSE ---
First unit PRBCs infused. No symptoms of reaction. Second started.
== END 2020-05-04 17:50 | disposition home or self-care (01) ==
PROVIDERS: Emergency Provider Emergency Medicine; PCP Family Medicine
DX: D64.9 Anemia, unspecified (principal); E83.51 Hypocalcemia; R42 Dizziness and giddiness
CPT/HCPCS: 36415; 36430; 80053; 81003; 81015; 85025; 86850; 86900; 86901; 87077; 87086; 87186; 96361; 96374; 96376; 99282; 99284; P9016; J1170; J1642